=== PATIENT | female | born 1980 | race Caucasian/White ===

== ENCOUNTER 2019-04-07 10:24 | Outpatient (CLI) | payer OTHER, SELFPAY ==
[2019-04-07 12:24] LABS: HCG Quant, Pregnancy 9474 mIU/mL (1-3)
== END 2019-04-07 10:44 ==
PROVIDERS: PCP Family Medicine; Visit Provider Nurse Practitioner Women's Health
DX: O20.9 Hemorrhage in early pregnancy, unspecified (principal); Z32.00 Encounter for pregnancy test, result unknown
CPT/HCPCS: 36415; 86850; 86900; 86901; 84702

== ENCOUNTER 2019-04-09 01:09 | Outpatient (CLI) | payer OTHER, SELFPAY ==
[2019-04-09 12:28] LABS: HCG Quant, Pregnancy 12347 mIU/mL (1-3)
== END 2019-04-09 01:29 ==
PROVIDERS: PCP Family Medicine; Visit Provider Nurse Practitioner Women's Health
DX: O20.9 Hemorrhage in early pregnancy, unspecified (principal)
CPT/HCPCS: 36415; 84702

== ENCOUNTER 2019-04-29 10:12 | Outpatient (CLI) | payer OTHER, SELFPAY ==
--- NOTE | 2019-04-29 10:15 | DI.US_ITS ---
SYMPTOMS/DIAGNOSIS: HEMORRHAGE IN EARLY , BLEEDING X 3 WEEKS, HEAVY BLEEDING SINCE 04/28/19, NO CRAMPING, ? ECTOPIC VERSUS NONVIABLE , O20.9 OBSTETRICAL ULTRASOUND: Many abnormalities cannot be diagnosed. A normal exam does not exclude a congenital anomaly. HISTORY: Date of exam: 04/29/2019 LMP: 01/25/19 EDC by LMP: 13+3 Previous study: wks Range: 12+3 to 14+3 EDC by prior us: Findings: Prior surgery/: BIOMETRY: PELVIC MEASUREMENTS: CRL: mm wks Uterus: 9.0 x 5.4 x 6.1 cm Yolk sac: mm wks Gest sac: 22 mm 7+1 wks Rt Ovary: 3.5 x 1.8 x 3.0 cm BPD: mm wks HC: mm wks Lt Ovary: 3.7 x 1.9 x 2.0 cm AC: mm wks FL: mm wks Comments: Composite Age (US): wks EDC by US: Heart Rate: NA BPM Amniotic Fluid: [place] Normal Polyhydramnios Movement noted: Yes X No Comments: There is a single intrauterine gestational sac. Estimated gestational age based on the sac size is 7 weeks 1 day. No pole or yolk sac is identified. The uterus measures 9 x 5.4 x 6.1 cm. Both ovaries were visualized and are grossly unremarkable. No free pelvic fluid is identified. No adnexal mass is seen. IMPRESSION: Single intrauterine gestational sac. Estimated sonographic age is 7 weeks 1 day based on gestational sac size. No pole is identified. The findings are suspicious for a nonviable . Followup is recommended.
[2019-04-29 13:25] LABS: HCG Quant, Pregnancy 16513 mIU/mL (1-3)
== END 2019-04-29 10:32 ==
PROVIDERS: PCP Family Medicine; Visit Provider Obstetrics & Gynecology
DX: O20.9 Hemorrhage in early pregnancy, unspecified (principal)
CPT/HCPCS: 36415; 76817; 84702

== ENCOUNTER 2019-05-13 12:24 | Outpatient (CLI) | payer OTHER, SELFPAY ==
[2019-05-13 14:09] LABS: HCG Quant, Pregnancy 38 mIU/mL (1-3)
== END 2019-05-13 12:44 ==
PROVIDERS: PCP Family Medicine; Visit Provider Obstetrics & Gynecology
DX: O03.9 Complete or unspecified spontaneous abortion without complication (principal)
CPT/HCPCS: 36415; 84702

== ENCOUNTER 2019-11-08 16:27 | Outpatient (REF) | payer OTHER, SELFPAY ==
--- NOTE | 2019-11-08 15:00 | PAPFT_PTH ---
PATIENT: Klarissa Vergara LOC: [facility] U#:[id number] AGE/SX: 39/F ROOM: RE11/08/[address]: Mary Maria : 1980 BED: DIS: 11/08/2019 SPEC #: [id number] RECD: 11/08/19 17:44 STATUS: LATA REMami #: [id number] ELISABETH: 11/08/19 15:[address]: Mary Maria DEPT: [facility] Cytology RECD BY: Cora Vallejo ENTERED: 11/08/19 17:44 SP TYPE: PAPFT OTHR DR: Saida Singh Tissues: 1 - CX/ENDOCX FOR PAP SMEARS Procedures: PAP THIN PREP/UVM Screening HPV DNA PROBE Comments: [id number]
[2019-11-08 18:04] LABS: *AMPHETAMINES SCREEN URINE Negative (Negative); *BARBITURATES SCREEN URINE Negative (Negative); *BENZODIAZEPINES SCREEN URINE Negative (Negative); Cannabinoids THC Negative (Negative); Cocaine Screen,Urine Negative (Negative); METHADONE URINE SCREEN Negative (Negative); OPIATES URINE SCREEN Negative (Negative)
[2019-11-08 18:07] LABS: Tricyclic Antidepressants Negative (Negative)
[2019-11-10 13:09] LABS: Chlamydia Result Negative (Negative); GC Result Negative (Negative)
[2019-11-12 20:55] LABS: Buprenorphine Negative; Norbuprenorphine Negative
== END 2019-11-08 16:47 ==
LOC: LBN 16:27
PROVIDERS: PCP Family Medicine; Visit Provider Advanced Practice Midwife
DX: Z34.91 Encounter for supervision of normal pregnancy, unspecified, first trimester (principal); Z11.3 Encounter for screening for infections with a predominantly sexual mode of transmission; Z12.4 Encounter for screening for malignant neoplasm of cervix
CPT/HCPCS: 80307; 87491; 87591; 88142; 87086; 87480; 87510; 87624; 87660

== ENCOUNTER 2019-12-06 10:05 | Outpatient (CLI) | payer OTHER, SELFPAY ==
[2019-12-06 10:46] LABS: Absolute Basophil Count 0.02 k/cumm (0.0-0.2); Absolute Eosinophil Count 0.17 k/cumm (0.0-0.7); Absolute Lymphocyte Count 1.75 k/cumm (1.2-3.4); Absolute Neutrophil Count 5.46 k/cumm (1.2-6.7); Basophils % 0.3; Eosinophils % 2.1; HCT 40.1 % (36.0-46.0); HGB 13.8 g/dL (12.0-15.5); Lymphocytes % 21.9; Mean Corp. HGB Concentration 34.4 g/dL (32.0-36.0); Mean Corpuscular Hemoglobin 30.8 pg (27.0-33.0); Mean Corpuscular Volume 89.5 fL (80-95); Mean Platelet Volume 11.2 fL (8.0-11.0); Monocytes % 7.5; Neutrophils % 68.2; Platelet Count 240 x1000/uL (130-400); RBC 4.48 m/cumm (4.00-5.20); RBC Distribution Width 13.4 % (11.7-14.6)
[2019-12-07 10:46] LABS: Syphilis Total Ab w/Reflex Nonreactive (Nonreactive)
[2019-12-07 11:05] LABS: HIV-1/2 Ag & Ab Screen Negative (Negative)
[2019-12-07 11:06] LABS: Hepatitis B Surface Ag Negative (Negative)
[2019-12-07 11:43] LABS: Hepatitis C Ab w Rflx HCV PCR Negative (Negative)
[2019-12-07 11:49] LABS: Rubella IgG Ab (UVM) Positive (See Note)
[2019-12-07 11:52] LABS: Varicella IgG Antibody Positive (See Note)
== END 2019-12-06 10:25 ==
PROVIDERS: PCP Family Medicine; Visit Provider Advanced Practice Midwife
DX: Z34.91 Encounter for supervision of normal pregnancy, unspecified, first trimester (principal); Z11.4 Encounter for screening for human immunodeficiency virus [HIV]; Z11.59 Encounter for screening for other viral diseases; Z01.84 Encounter for antibody response examination
CPT/HCPCS: 36415; 86787; 86803; 86850; 86900; 86901; 87340; 87389; 85025; 86762; 86780

== ENCOUNTER 2020-01-17 10:21 | Outpatient (CLI) | payer OTHER, SELFPAY ==
--- NOTE | 2020-01-17 10:00 | DI.US_ITS ---
EXAM: US OB 2-3 TRIMESTER CLINICAL HISTORY: ,Z34.90. TECHNIQUE: Transabdominal obstetrical ultrasound performed. COMPARISON: US OB 1st trimester from 04/29/2019 FINDINGS: Number of fetuses: One. position: Vertex. heart rate: Seen but not measured Placental grade: 1 Placental location: Anterior. The edge of the placenta appears to cross the os by 1 cm. BIOMETRIC DATA: BPD: 47 millimeters= 20+ 1 weeks HC: 183 millimeters = 20+ 5 weeks AC: 149 millimeters = 20+ 1 weeks FL: 34 millimeters = 20+ 4 weeks Cisterna Magna: 3.8 millimeters Cerebellum: 2.4 cm EFW: 351 grms 68% Composite Age: 20+ 3 weeks EDC by US: 02 June 2020 Amniotic fluid index: Amount of fluid is visually within normal limits. ANATOMICAL SURVEY: Four-chambered heart: Unremarkable. LVOT: Unremarkable. RVOT: Unremarkable. Left-sided stomach: Unremarkable. urinary bladder: Unremarkable. Bilateral kidneys: Unremarkable. Three-vessel cord: Unremarkable. Cord insertion: Unremarkable. Umbilical artery velocity: Unremarkable. Posterior fossa:Unremarkable. ventricles: Unremarkable. nose: Unremarkable. lips: Unremarkable. palate: Unremarkable. spine: Unremarkable. Two arms and two legs: Unremarkable. IMPRESSION: 1. Single live intrauterine gestation as above. 2. Normal anatomic survey. 3. Placenta previa. The edge of the placenta appears to cross the os by approximate 1 cm. Follow-u p exam is recommended.
== END 2020-01-17 10:41 ==
PROVIDERS: PCP Family Medicine; Visit Provider Advanced Practice Midwife
DX: Z34.92 Encounter for supervision of normal pregnancy, unspecified, second trimester (principal); Z3A.20 20 weeks gestation of pregnancy
CPT/HCPCS: 76805

== ENCOUNTER 2020-03-13 01:06 | Outpatient (CLI) | payer OTHER, SELFPAY ==
--- NOTE | 2020-03-13 08:30 | DI.US_ITS ---
EXAM: US OB F/U FACIAL/LVOT/RVOT CLINICAL HISTORY: placental position,O44.00. COMPARISON: US US OB 2-3 TRIMESTER from 01/17/2020 TECHNIQUE: Transabdominal and transvaginal obstetrical ultrasound performed. FINDINGS: Sonographic images demonstrate a single intrauterine gestation in transverse position, with the head toward the maternal left. The placenta is anterior. The tip of the placenta measures 5.2 cm from the internal os as measured o n transvaginal imaging. Estimated date of delivery based upon 1st ultrasound: 05 June 2020. heart rate motion is Dopplered at: 153 bpm. Amount of amniotic fluid is visually within normal limits. IMPRESSION: Anterior placenta without evidence of placenta previa. DATA REPOSITORY:
== END 2020-03-13 01:26 ==
PROVIDERS: PCP Family Medicine; Visit Provider Advanced Practice Midwife
DX: O43.893 Other placental disorders, third trimester (principal); Z3A.28 28 weeks gestation of pregnancy
CPT/HCPCS: 76815

== ENCOUNTER 2020-03-13 14:10 | Outpatient (CLI) | payer OTHER, SELFPAY ==
[2020-03-13 15:09] LABS: HCT 37.1 % (36.0-46.0); HGB 12.4 g/dL (12.0-15.5); Mean Corp. HGB Concentration 33.4 g/dL (32.0-36.0); Mean Corpuscular Hemoglobin 30.1 pg (27.0-33.0); Mean Platelet Volume 11.3 fL (8.0-11.0); Platelet Count 256 x1000/uL (130-400); RBC 4.12 m/cumm (4.00-5.20); RBC Distribution Width 13.6 % (11.7-14.6); White Blood Cell Count 10.11 k/cumm (4.4-10.8)
[2020-03-13 15:22] LABS: Glucose,1 Hr (Glucola) 145 mg/dL (80-140)
--- NOTE | 2020-03-13 15:38 | ANES_ITS ---
Anesthesia Note I met Klarissa for the first time today. She is 28 weeks gestation, Para 2 1, and her BMI is 45 at this visit. She explained a less than desirable expe rience at another hospital with her first and an epidural followed by a GETA. She is not sure at this time if she wants a scheduled or a experience. She has adequate vascular, airway, and neuraxial analgesia access. I do, however, believe she still should be reevaluated in two weeks when she comes for her OB consultation to see what she has decided. Tye Reeder CNM was made aware of this.
== END 2020-03-13 14:30 ==
PROVIDERS: Advanced Practice Midwife; PCP Family Medicine; Visit Provider Advanced Practice Midwife
DX: Z34.93 Encounter for supervision of normal pregnancy, unspecified, third trimester (principal)
CPT/HCPCS: 82950; 85027

== ENCOUNTER 2020-04-10 00:41 | Outpatient (CLI) | payer OTHER, SELFPAY ==
--- NOTE | 2020-04-10 12:30 | DI.US_ITS ---
EXAM: US OB ARAVIND WEIGHT CLINICAL HISTORY: Abnormal glucose tolerance affecting , O99.810 TECHNIQUE: Ultrasound performed using standard protocol. COMPARISON: US US OB F/U FACIAL/LVOT/RVOT from 03/13/2020 FINDINGS: Ob ultrasound was performed utilizing 3rd trimester protocol. biometry is consistent with gest ational age of 33 weeks 5 days and an EDC of 05/24/2020. The estimated weight is 2289 grams which is at the 91st percentile for predicted gestational ag e. Placenta is anterior with no placenta previa. Fetus is in paula breech presentation. There is visually a normal quantity of amniotic fluid and the ARAVIND is 22. heart rate is 141 BPM . IMPRESSION: DATA REPOSITORY:
== END 2020-04-10 01:01 ==
PROVIDERS: PCP Family Medicine; Visit Provider Obstetrics & Gynecology
DX: O99.810 Abnormal glucose complicating pregnancy (principal); Z3A.33 33 weeks gestation of pregnancy
CPT/HCPCS: 76816

== ENCOUNTER 2020-05-07 10:29 | Outpatient (CLI) | payer OTHER, SELFPAY | END 2020-05-07 10:49 | PROVIDERS: PCP Family Medicine; Visit Provider Obstetrics & Gynecology | DX: O09.523 Supervision of elderly multigravida, third trimester (principal); Z3A.36 36 weeks gestation of pregnancy | CPT/HCPCS: 59025 ==

== ENCOUNTER 2020-05-07 12:41 | Outpatient (REF) | payer OTHER, SELFPAY ==
[2020-05-07 14:09] LABS: *AMPHETAMINES SCREEN URINE Negative (Negative); *BARBITURATES SCREEN URINE Negative (Negative); *BENZODIAZEPINES SCREEN URINE Negative (Negative); Cannabinoids THC Negative (Negative); Cocaine Screen,Urine Negative (Negative); METHADONE URINE SCREEN Negative (Negative); OPIATES URINE SCREEN Negative (Negative)
[2020-05-07 14:14] LABS: Tricyclic Antidepressants Negative (Negative)
[2020-05-12 18:12] LABS: Buprenorphine Negative; Norbuprenorphine Negative
== END 2020-05-07 13:01 ==
LOC: LBN 12:41
PROVIDERS: PCP Family Medicine; Visit Provider Obstetrics & Gynecology
DX: Z34.90 Encounter for supervision of normal pregnancy, unspecified, unspecified trimester (principal)
CPT/HCPCS: 80307; 87081

== ENCOUNTER 2020-05-18 02:36 | Outpatient (CLI) | payer OTHER, SELFPAY ==
--- NOTE | 2020-05-18 06:30 | DI.US_ITS ---
EXAM: US OB ARAVIND WEIGHT CLINICAL HISTORY: ABNL GLUCOSE, LARGE FOR GESTATIONAL AGE. TECHNIQUE: Transabdominal obstetrical ultrasound performed. COMPARISON: US US OB ARAVIND WEIGHT from 04/10/2020 US US OB ARAVIND WEIGHT from 04/10/2020 FINDINGS:: Number of fetuses: One. position: Vertex. Placental location: anterior . No evidence of previa. BIOMETRIC DATA: BPD: 96mm = 39+ 1 weeks HC: 350mm = 40+ 5 weeks AC: 371 mm = 41+ 0 weeks FL: 69 mm = 30 5+2 weeks EFW: 3843 Gms = 97 % Composite Age: 39+ 0 EDC by ultrasound: 25 May 2020 Heart Rate: 121BPM Amniotic fluid index: 33.1 cm. Polyhydramnios IMPRESSION: Polyhydramnios. size is large for gestational age. DATA REPOSITORY:
== END 2020-05-18 02:56 ==
PROVIDERS: PCP Family Medicine; Visit Provider Obstetrics & Gynecology
DX: O99.810 Abnormal glucose complicating pregnancy (principal); O36.63X0 Maternal care for excessive fetal growth, third trimester, not applicable or unspecified; O40.3XX0 Polyhydramnios, third trimester, not applicable or unspecified
CPT/HCPCS: 76816

== ENCOUNTER 2020-05-18 07:47 | Outpatient (CLI) | payer OTHER, SELFPAY | END 2020-05-18 08:07 | PROVIDERS: PCP Family Medicine; Visit Provider Obstetrics & Gynecology | DX: O09.523 Supervision of elderly multigravida, third trimester (principal); Z3A.37 37 weeks gestation of pregnancy | CPT/HCPCS: 59025 ==

== ENCOUNTER 2020-05-22 13:08 | Outpatient (CLI) | payer OTHER, SELFPAY | END 2020-05-22 13:28 | PROVIDERS: PCP Family Medicine; Visit Provider Obstetrics & Gynecology | DX: O09.523 Supervision of elderly multigravida, third trimester (principal); Z3A.36 36 weeks gestation of pregnancy | CPT/HCPCS: 59025 ==

== ENCOUNTER 2020-05-24 07:12 | Outpatient (CLI) | payer OTHER, SELFPAY | END 2020-05-24 07:32 | PROVIDERS: PCP Family Medicine; Visit Provider Obstetrics & Gynecology | DX: O09.523 Supervision of elderly multigravida, third trimester (principal); Z3A.38 38 weeks gestation of pregnancy | CPT/HCPCS: 59025 ==

== ENCOUNTER 2020-05-26 07:26 | Outpatient (CLI) | payer OTHER, SELFPAY ==
[2020-05-27 17:54] LABS: COVID-19 RT-PCR Result NEGATIVE (Negative)
== END 2020-05-26 07:46 ==
PROVIDERS: PCP Family Medicine; Visit Provider Obstetrics & Gynecology
DX: Z11.59 Encounter for screening for other viral diseases (principal); Z01.818 Encounter for other preprocedural examination
CPT/HCPCS: U0003

== ENCOUNTER 2020-05-28 02:26 | Outpatient (CLI) | payer OTHER, SELFPAY ==
[2020-05-28 11:24] LABS: Abs Immature Grans 0.03 10^3/uL (0.0-0.06); Absolute Basophil Count 0.01 10^3/uL (0.0-0.2); Absolute Eosinophil Count 0.12 10^3/uL (0.0-0.7); Absolute Lymphocyte Count 1.31 10^3/uL (1.2-3.4); Absolute Neutrophil Count 5.63 10^3/uL (1.2-6.7); Basophils % 0.1; Eosinophils % 1.5; HCT 37.7 % (36.0-46.0); HGB 12.2 g/dL (11.2-15.7); Immature Grans % 0.4; Lymphocytes % 16.8; MCH 27.8 pg (27.0-33.0); MCHC 32.4 % (32.0-36.0); MCV 85.9 fL (80-95); MPV 11.5 fL (8.0-11.0); Neutrophils % 72.2; Nucleated RBC 0 %; Platelet Count 225 10^3/uL (130-400); RBC 4.39 10^6/uL (3.93-5.22); RDW 14.9 % (11.7-14.6); RDW-SD 46.5 fL
== END 2020-05-28 02:46 ==
PROVIDERS: PCP Family Medicine; Visit Provider Obstetrics & Gynecology
DX: Z34.90 Encounter for supervision of normal pregnancy, unspecified, unspecified trimester (principal); Z01.818 Encounter for other preprocedural examination
CPT/HCPCS: 36415; 86850; 86900; 86901; 85025

== ENCOUNTER 2020-05-30 06:03 | Inpatient (IN) | payer OTHER, SELFPAY ==
[2020-05-30 06:25] VITALS: BP 120/79; PULSE 108; RESP 18; TEMP 36.5; O2SAT 98
[2020-05-30 06:27] VITALS: BP 120/79; PULSE 108; RESP 18; TEMP 36.5; O2SAT 98
[2020-05-30] MEDS: Lactated Ringers 1,000 ML 125 ML IV ×3 (07:06→15:31)
--- NOTE | 2020-05-30 07:20 | W.PM.HP.N ---
Date of service: 05/30/20 Time of Service: 07:21 Assessment and Plan Assessment and plan (1) : Status: Acute (2) History of : Status: Acute (3) macrosomia: Status: Acute Assessment and plan: Plan to proceed with repeat section at 39 weeks. Risks of surgery including hemorrhage, infection and injury to other organs such as bowel bladder were discussed with the patient. All questions were answered to the patient's satisfaction and consent for surgery was obtained. History of Present Illness History of Present Illness Chief Complaint: Prior section Narrative: 39 year old @ 39 weeks scheduled for repeat section. Previous was performed for macrosomia and macrosomia is expected in this as well. The patient was counseled against a trial of labor. Her has been otherwise uncomplicated. EFW is >4500grams. Review of Systems All systems reviewed & are unremarkable except as noted in HPI and below PFSH Medical History (Updated 05/30/20 @ 07:24 by Kalyan Howard MD) Gestational diabetes (Acute) Per pt. They decided that I didn't have it H/O LEEP (Acute) 2012 High BMI (Acute) 42 History of (Acute) Unsuccessful induction of labor at 40 weeks: Indication LGA . Maternal hypo-tension after labor epidural. Anesthesia under general. Daughter Brittani 8+ lbs SAB (spontaneous ) (Inactive) Surgical History History of loop electrical excision procedure (LEEP) (Acute) Social History (Updated 10/28/19 @ 10:05 by Mirtha Ashley MD) Smoking/Tobacco Use Status: Never Drug use: Never Household members: significant other, children and other Details: SO: Stewart Partida: Brittani. Step son: Dav. Number of Children: 1 current occupation: [employer]. Sexually active: Yes Female Reproductive History Menstrual Age of Menarche: 13 control method: none History History 3 Para 1 Hx # Term Pregnancies 1 Multiple births 0 Hx # Pregnancies 0 Ectopic pregnancies 0 AB induced 0 Hx Number of Living Children 1 AB spontaneous 2 Past Pregnancies Del. Date GA/Weeks # Outcome Route Wgt Sex Labor Lgth Anesthesia Location Prov Complic 09/16/16 40 No Successful 8 lb 6 oz Female [facility] 04/18/19 Unsuccessful 08/15/19 Unsuccessful Delivery Date: 09/16/16 Brittani, for FTP, dilated to 8 cms. IOL for LGA baby, weight is 8-6, Wound infection, Blood transfusion. Patient describes as traumatic . Mary Maria Delivery Date: 04/18/19 Mary Irene Delivery Date: 08/15/19 [facility] Mary Maria Meds Home Medications and Allergies Home Medications Medication Instructions Recorded Confirmed Type prenat.vits,trent,[id number] 1 tab PO DAILY 04/07/19 05/30/20 History aspirin 81 mg tablet,delayed 81 mg PO DAILY #90 tab 12/06/19 05/30/20 Rx release blood sugar diagnostic #50 each 03/16/20 05/24/20 Rx blood-glucose meter #1 each 03/16/20 05/24/20 Rx lancets 28 gauge #50 each 03/16/20 05/24/20 Rx Allergies Allergy/AdvReac Type Severity Reaction Status Date / Time adhesive AdvReac Mild erythema Verified 05/30/20 06:23 wherever tape makes contact w/ skin. Exam Resp Auscultation: clear to auscultation bilaterally Cardio Rate: regular rate Rhythm: regular rhythm Results Last Vital Signs Temp 97.7 F 05/30/20 06:27 Pulse 108 H 05/30/20 06:27 Resp 18 05/30/20 06:27 BP 120/79 05/30/20 06:27 Pulse Ox 98 05/30/20 06:27 COVID-19 Screening Have you,or household,traveled outside [place] in last 14 days?: Yes Had IN PERSON contact w/suspected or confirmed C-19 person: Yes
[2020-05-30] MEDS: ceFAZolin 2 GM/50 ML BAG IVPB (07:45)
[2020-05-30] MEDS: Oxytocin/Normal Saline 30 UNITS/500 ML BAG 95 UNITS IV (10:12)
[2020-05-30] MEDS: Docusate Sodium 100 MG CAP PO (18:05)
[2020-05-30] MEDS: Ketorolac 30 MG/ML VIAL IVP (18:06)
[2020-05-31] MEDS: Lactated Ringers 1,000 ML 125 ML IV (01:56)
[2020-05-31] MEDS: Ketorolac 30 MG/ML VIAL IVP ×3 (06:08→12:56)
[2020-05-31] MEDS: Normal Saline 10 ML VIAL IJ ×2 (06:08)
[2020-05-31] MEDS: Normal Saline Flush 10 ML SYR IV (12:56)
[2020-05-31] MEDS: Docusate Sodium 100 MG CAP PO (14:11)
[2020-05-31] MEDS: Acetaminophen 325 MG TAB 650 MG PO ×2 (14:11→18:10)
--- NOTE | 2020-05-31 16:38 | W.PM.OP ---
Date of service: 05/31/20 Time of Service: 16:38 Operative Note Operative Note DATE OF PROCEDURE: 05/30/20 PRE-OP DIAGNOSIS: 39 weeks gestation. Prior section. POST-OP DIAGNOSIS: same PROCEDURE: Repeat low transverse section SURGEON: Kalyan Howard ASSISTING SURGEON: Chantal Gordon ANESTHESIA: spinal ESTIMATED BLOOD LOSS: 600 PATHOLOGY: none sent COMPLICATIONS: None Patient was transported to: PACU Patient's condition: stable Findings: 1. Delivered LBM infant in paula breech presentation Procedure Description: The patient was taken to the operating room and after adequate spinal anesthesia was obtained the patient was placed in supine position with a left lateral tilt. The patient was prepped and draped in the usual sterile manner. A Pfannenstiel incision was made with a #10 blade scalpel and sharp dissection was carried down to the underlying layer of fascia. The fascia was incised the midline with a scalpel and the incision carried laterally in either direction with La scissors. The superior and inferior aspects of the fascial incision were dissected off the underlying layer of rectus muscles using both blunt and sharp dissection. The rectus were divided along the linea alba with blunt digital dissection. The peritoneum was entered sharply and the incision was extended superiorly and inferiorly with the Bovie cautery. The vesicouterine flap was tented up with pickups and incised with Metzenbaum scissors. The incision was extended laterally in either direction with the Metzenbaum scissors. The bladder flap was created digitally. The lower uterine segment was incised in a transverse manner with a scalpel and the incision was carried laterally in either direction via stretch. was found in paula breech presentation and delivered atraumatically. The mouth and nose were suctioned. The cord was clamped and cut. The infant was handed off to the awaiting breakdown worker. The placenta was manually extracted and the uterus cleared of all clots and debris. The hysterotomy was closed with a running locked stitch of #1 chromic. A second indicating layer of #1 chromic in a Lambert stitch was used to complete the repair and achieve hemostasis. Several figure of eight sutures of #1 chromic were used to obtain hemostasis along the uterine incision. The gutters were cleared of all clots and debris. The peritoneum was closed with a running stitch of 2-0 Vicryl. The subfascial space was thoroughly inspected and was noted to be hemostatic. The fascia was closed with a running stitch of 0 Vicryl. The subcutaneous tissues were closed with interrupted sutures of 3-0 Vicryl. The skin was closed with a running subcuticular stitch of 4-0 Monocryl and Dermabond was applied. The procedure was concluded at this point. Sponge, lap and needle counts were correct at the conclusion of the procedure. The patient tolerated the procedure well and was transferred to the floor in stable condition.
[2020-05-31] MEDS: Ibuprofen 600 MG TAB PO (18:10)
[2020-05-31] MEDS: oxyCODONE 5 mg/Acetaminophen 325 mg TAB PO (22:35)
[2020-06-01] MEDS: oxyCODONE 5 mg/Acetaminophen 325 mg TAB PO ×4 (03:46→20:50)
[2020-06-01] MEDS: Ibuprofen 600 MG TAB PO ×4 (03:47→22:05)
--- NOTE | 2020-06-01 08:08 | W.PM.PROGNOT ---
Date of Service Date of service: 06/01/20 Time of Service: 08:08 Assessment and Plan Assessment and plan (1) delivery delivered: Status: Acute Assessment and plan: Status post repeat low transverse section. Continue routine postoperative care. Remove dressing today. Plan for discharge home tomorrow. Subjective Subjective Interval history since last seen: Doing well. Ambulatory. Tolerating regular diet. Minimal lochia. Objective Objective Clinical Data: Vital Signs Temperature 97.7 F 05/30/20 06:27 Pulse 108 H 05/30/20 06:27 Pulse Rhythm Regular 05/30/20 06:27 Respiratory Rate 18 05/30/20 06:27 Respiratory Effort 05/30/20 06:27 Blood Pressure 120/79 05/30/20 06:27 Pulse Oximetry 98 05/30/20 06:27 Oxygen Delivery Method Room Air 05/30/20 06:27 Oxygen Flow Rate 0 05/30/20 06:27 Pain Level 4 06/01/20 03:47 Intake & Output 05/31/20 05/31/20 06/01/20 11:59 23:59 11:59 Intake Total 560.417 / 1699.581 7914 / 1560.417 Balance 560.417 / 3482.343 1411 / 1560.417 Intake: IV 560.417 / 7532.585 3213 / 1560.417
[2020-06-01] MEDS: Docusate Sodium 100 MG CAP PO (10:22)
[2020-06-02] MEDS: Ibuprofen 600 MG TAB PO ×2 (04:05→13:38)
[2020-06-02] MEDS: oxyCODONE 5 mg/Acetaminophen 325 mg TAB PO ×3 (04:05→13:39)
[2020-06-02] MEDS: Docusate Sodium 100 MG CAP PO (09:14)
--- NOTE | 2020-06-02 10:05 | W.PM.PROGNOT ---
Date of Service Date of service: 06/02/20 Time of Service: 10:05 Assessment and Plan Assessment and plan (1) delivery delivered: Status: Acute Assessment and plan: Plan for discharge home today. Discussed contraception. Will start on Ortho Micronor. Follow up in 1 week. Subjective Subjective Interval history since last seen: Doing well Ambulatory Tolerating regular diet Desires discharge home today. Exam GI Other: Incision C/D/I Objective Objective Clinical Data: Vital Signs Temperature 97.7 F 05/30/20 06:27 Pulse 108 H 05/30/20 06:27 Pulse Rhythm Regular 05/30/20 06:27 Respiratory Rate 18 05/30/20 06:27 Respiratory Effort 05/30/20 06:27 Blood Pressure 120/79 05/30/20 06:27 Pulse Oximetry 98 05/30/20 06:27 Oxygen Delivery Method Room Air 05/30/20 06:27 Oxygen Flow Rate 0 05/30/20 06:27 Pain Level 3 06/02/20 09:14
== END 2020-06-02 14:30 | disposition home or self-care (01) | DRG 788 ==
LOC: OBS 09:59 → PDS 10:05
PROVIDERS: Admitting Provider Obstetrics & Gynecology; PCP Family Medicine; Visit Provider Obstetrics & Gynecology
PROC: 10D00Z1 Extraction of Products of Conception, Low, Open Approach (ICD-10-PCS; CPT 59514; principal; 2020-05-30 07:30)
DX: O34.211 Maternal care for low transverse scar from previous cesarean delivery (principal); Z37.0 Single live birth; Z3A.39 39 weeks gestation of pregnancy; O32.1XX0 Maternal care for breech presentation, not applicable or unspecified; Z79.82 Long term (current) use of aspirin; O99.214 Obesity complicating childbirth; E66.9 Obesity, unspecified
CPT/HCPCS: 59514; 99223; 99233; J0690; J1885; J2370; J2405; J3010

== ENCOUNTER 2024-02-16 13:09 | Outpatient (REF) | payer OTHER, SELFPAY ==
[2024-02-16 19:00] LABS: ALT 54 U/L (14-59); AST 30 U/L (15-37); Albumin 4.1 g/dL (3.4-5.0); Alkaline Phosphatase 87 U/L (46-116); Anion Gap 10.1 mmol/L (3-11); BUN 20 mg/dL (7-18); Bilirubin, Total 1.4 mg/dL (0.2-1.0); CO2 25.9 mmol/L (21.0-32.0); CREATININE 0.8 mg/dL (0.55-1.02); Calcium 8.9 mg/dL (8.5-10.1); Calculated LDL 123 mg/dL (<100); Chloride 106 mmol/L (98-107); Cholesterol 194 mg/dL (<200); Estimated GFR 94.87 (mL/min/1.73m2); Glucose 100 mg/dL (74-106); HDL Cholesterol 57 mg/dL (40-60); Sodium 142 mmol/L (136-145); Total Protein 7.7 g/dL (6.4-8.2); Triglyceride 71 mg/dL (<150)
== END 2024-02-16 13:10 | disposition home or self-care (01) ==
LOC: NCHCN 13:09
PROVIDERS: PCP Family Medicine; Visit Provider Physician Assistant
DX: E66.9 Obesity, unspecified (principal)
CPT/HCPCS: 80053; 80061

== ENCOUNTER 2025-03-07 16:23 | Outpatient (REF) | payer OTHER, SELFPAY ==
--- NOTE | 2025-03-07 09:10 | PAPFT_PTH ---
PATIENT: Klarissa Vergara LOC: [facility]#:[id number] AGE/SX: 44/F ROOM: RE03/07/[address]: Delicia Davila : 1980 BED: DIS: 03/07/2025 SPEC #: [id number] RECD: 03/08/25 13:04 STATUS: LATA REMami #: [id number] ELISABETH: 03/07/25 09:[address]: Delicia Davila DEPT: [facility] Cytology RECD BY: Cora Vallejo ENTERED: 03/08/25 13:05 SP TYPE: PAPFT OTHR DR: Saida Singh Tissues: 1 - CX/ENDOCX FOR PAP SMEARS Procedures: PAP THIN PREP/UVM Screening HPV DNA PROBE Comments: [id number] (HPV 16 & 18/45)
== END 2025-03-07 16:24 | disposition home or self-care (01) ==
LOC: NCHCN 16:23
PROVIDERS: PCP Family Medicine; Visit Provider Physician Assistant
DX: Z12.4 Encounter for screening for malignant neoplasm of cervix (principal)
CPT/HCPCS: 88142; 87624